=== PATIENT | male | born 1935 | race Caucasian/White ===

== ENCOUNTER → 2022-05-24 | Outpatient (CLI) | payer MEDICARE, SELFPAY ==
--- NOTE | 2022-05-24 11:11 | NEURO_ITS ---
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 Symptoms are always present, but are exacerbated by certain activities. Evaluate for entrapment neuropathy. Findings: Nerve conduction studies were performed in the right and left upper extremities. The right median motor study recording the abductor pollicis brevis showed a normal amplitude, prolonged distal latency and slowed conduction velocity. The right ulnar motor study recording the abductor digiti minimi showed a normal amplitude, slightly prolonged distal latency and mildly slowed conduction velocity. Focal slowing was present across the elbow. The right median sensory response recording digit was absent. The right ulnar sensory response recording digit five showed a borderline amplitude, borderline latency and slowed conduction velocity. The right radial sensory response recording over the extensor snuff box showed a borderline amplitude, normal latency and borderline conduction velocity. The left median motor study recording the abductor pollicis brevis showed a normal amplitude, prolonged distal latency and slowed conduction velocity. The left ulnar motor study recording the abductor digiti minimi showed a normal amplitude, prolonged distal latency and slowed conduction velocity. No conduction block or focal slowing was present across the elbow. The left median sensory response recording digit two was absent. The left ulnar sensory response recording digit five showed a borderline amplitude, borderline latency and slowed conduction velocity. The left radial sensory response was present, but inconsistently producible. Right median-ulnar lumbrical / interosseous motor latencies showed a prolonged median latency compared to the ulnar. Left median-ulnar lumbrical / interosseous motor latencies showed a prolonged median latency compared to the ulnar. Needle EMG of the right upper extremity muscles was performed. No denervation was seen in any muscle. Motor units were large amplitude, long duration, with reduced recruitment in the first dorsal interosseous and abductor pollicis brevis. The morphology, activation and recruitment patterns were normal in the other sampled proximal muscles. Needle EMG of the left upper extremity muscles was performed. Sparse denervation was seen in the first dorsal interosseous. Motor units were large amplitude, long duration, with reduced recruitment in the first dorsal interosseous and abductor pollicis brevis. The morphology, activation and recruitment patterns were normal in the other sampled proximal muscles. Impression: This is a markedly abnormal study. 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 Theses lesions result from focal demyelination, but demonstrate significant secondary axonal loss. In addition, the diffusely low amplitude and slow velocity sensory responses are suggestive of an underlying peripheral neuropathy. This was not explored further as it was not the indication for the study. Jim Adames D.O. Multi Select Codes Neurology Neurology Interp Codes: 37740-57 [facility] [place] test comp (interp) (Qty:2) and 95469-71 [facility] cnd test 13/> studies (interp)
== END | disposition home or self-care (01) ==
LOC: PSN 09:22
PROVIDERS: PCP Family Medicine; Visit Provider Family Medicine
DX: R20.0 Anesthesia of skin (principal); R20.2 Paresthesia of skin
CPT/HCPCS: 95886; 95913

== ENCOUNTER → 2022-07-28 | Outpatient (CLI) | payer MEDICARE, SELFPAY ==
--- NOTE | 2022-07-28 13:12 | NEURO_ITS ---
NCS and/or EMG Patient Report Ordering Doctor: Brenden Lagos DATE OF SERVICE: 07/28/22 Arvin presents electrodiagnostic testing of the lower limbs. He reports numbness and tingling in both feet, for approximately the past 2 years. Electrodiagnostic findings: Right peroneal motor nerve demonstrates prolonged di stal latency with reduced amplitude and borderline reduced conduction velocity. Left peroneal motor nerve demonstrates prolonged distal latency with normal amplitude and reduced conduction velocity. Reduced tibial motor conduction velocity is noted bilaterally. Prolonged peroneal and tibial F waves. H reflex prolonged bilaterally. Absent sensory responses in the sural and superficial peroneal nerves bilaterally. On needle EMG testing, all muscles tested showed no evidence of denervation with normal motor unit action potentials. Electrodiagnostic assessment: This is an abnormal study in the lower limbs. 1. 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 2. No electrodiagnostic evidence is noted for lumbosacral radiculopathy. Multi Select Codes Neurology Neurology Interp Codes: 57512-47 [facility] test done w/n test comp (interp) (2) and 17040-25 [facility] cndj test 9-10 studies (interp)
== END | disposition home or self-care (01) ==
LOC: PSN 06:42
PROVIDERS: PCP Family Medicine; Referring Provider Family Medicine; Visit Provider Family Medicine
DX: G60.9 Hereditary and idiopathic neuropathy, unspecified (principal)
CPT/HCPCS: 95886; 95911

== ENCOUNTER → 2022-12-30 | Outpatient (CLI) | payer MEDICARE, SELFPAY ==
--- NOTE | 2022-12-30 15:37 | MRI_ITS ---
STUDY: MRI BRAIN WITH AND WITHOUT CONTRAST (ATTENTION INTERNAL AUDITORY CANALS - I.A.C.''s) REASON FOR EXAM: Male, 87 years old. ASYMMETRIC HEARING LOSS TECHNIQUE: Standardized multiplanar fat and water weighted pulse sequences were obtained. ml of 19ml clariscan contrast material was administered intravenously for the contrast portion of the examination. COMPARISON: None. FINDINGS: Normal bilateral temporal bones. Normal bilateral internal auditory canals. There is no demonstrated intracanalicular or cisternal vestibular schwannoma (acoustic neuroma). There is no enhancement of the bilateral VIIth or VIIIth cranial nerves. Normal bilateral cochlea, vestibules and semicircular canals. No visualized cerebellar pontine angle mass or cyst. No visualized nodular enlargement of the 7th or 8th cranial nerves. No visualized cavernous sinus abnormality. The bilateral mastoid air cells are clear. There is mild cerebral atrophy with widening of the extra-axial spaces and ventricular dilatation. Normal white matter tracts of the supratentorial brain. There is no evidence for recent intracranial ischemia or other cause of cytotoxic edema on diffusion weighted imaging (DWI). Normal T2* images of the brain without demonstrated susceptibility artifact. There is no demonstrated hemosiderin stain. Normal bilateral basal ganglia. Normal thalami. Normal flow voids within the major intracranial circulation suggesting patency by spin echo criteria. Normal venous enhancement. There is no enhancing intra-axial or extra-axial abnormality. There is no extra-axial fluid accumulation. Normal sella turcica, pituitary gland, infundibular stalk, optic chiasm and hypothalamus. Normal tectal plate and pineal gland. Normal midbrain, yariel and medulla. Normal cerebellum. Normal basal cisterns. No demonstrated orbital abnormality, within the constraints of a routine brain study. Normal visualized paranasal sinuses. Normal calvarium and skull base. Normal visualized soft tissue structures. Normal visualized upper cervical spine. MRI/Brain W/WO Contrast IMPRESSION: 1. Normal unenhanced and enhanced MRI of the bilateral internal auditory canals (I.A.C''s). 2. No visualized cerebellar pontine angle mass or cyst. No visualized nodular enlargement of the 7th or 8th cranial nerves. No visualized cavernous sinus abnormality. The bilateral mastoid air cells are clear. 3. Involutional changes of the brain, as described above. Electronically Signed: Franklin Barclay MD at 15:27 EST ,
--- NOTE | 2022-12-30 15:45 | RAD_ITS ---
STUDY: X-RAY - BILATERAL ORBITS REASON FOR EXAM: Male, 87 years old. H/O FB TECHNIQUE: 2 views of the bilateral orbits. COMPARISON: FINDINGS: Normal visualized osseous structures. No radiopaque foreign body is noted over the orbits. RAD/Orbits for Foreign Body IMPRESSION: No radiopaque foreign bodies over the orbits. The patient is cleared for MRI.. Electronically Signed: Ken Diego DO at 16:08 EST Reading Location ID and State: [facility] / [place] Tel [phone], Service support ,
[2022-12-30 16:14] LABS: CREATININE FINGERSTICK < 0.9 mg/dL (0.70-1.30); EGFR FINGERSTICK > 60.0000 mL/min (>60)
== END | disposition home or self-care (01) ==
LOC: MRI 15:22
PROVIDERS: PCP Family Medicine; Referring Provider Otolaryngology; Visit Provider Otolaryngology
DX: H91.90 Unspecified hearing loss, unspecified ear (principal)
CPT/HCPCS: 70030; 70553; A9575